=== PATIENT | male | born 1985 | race Caucasian/White ===

== ENCOUNTER 2017-06-21 07:37 | Day surgery (SDC) | payer OTHER ==
[~2017-06-21] VITALS: Ht 177.8 cm; Wt 78.2 kg
[~2017-06-21 07:37] MED LIST: SODIUM CHLORIDE 0.9% 1,000 ML IV ONE
[2017-06-21] MEDS ORDERED: SODIUM CHLORIDE 0.9% 1,000 ML IV ONE (07:46)
[2017-06-21] MEDS ORDERED: MONT10TA21 PO (08:02)
[2017-06-21] MEDS ORDERED: FentaNYL CITRATE-PF 100 MCG/2 ML VIAL ONE (08:03)
[2017-06-21] MEDS ORDERED: MIDAZOLAM HCL 2 MG/2 ML VIAL ONE (08:03)
[2017-06-21] MEDS ORDERED: FLUT16H NASAL (08:03)
[2017-06-21] MEDS ORDERED: OMEP20 PO (08:03)
[2017-06-21] MEDS ORDERED: FLUC200T PO (08:03)
[2017-06-21] MEDS ORDERED: MethylPREDNISolone SOD SUCC 125 MG/2 ML VIAL IVP ONE (09:00)
[2017-06-21] MEDS ORDERED: MethylPREDNISolone SOD SUCC 125 MG/2 ML VIAL ONE (09:16)
[2017-06-21] MEDS ORDERED: OXYGEN THERAPY IH SCH (20:00)
== END 2017-06-21 10:20 | disposition home or self-care (01) ==
LOC: SURGERY 07:37
PROVIDERS: ATTEND Internal Medicine Critical Care Medicine
DX: J38.4 Edema of larynx (principal); B37.0 Candidal stomatitis; J84.111 Idiopathic interstitial pneumonia, not otherwise specified; Z98.890 Other specified postprocedural states; Z79.899 Other long term (current) drug therapy
CPT/HCPCS: 31623; 31624; 71045; 87015; 87070; 87205; 87220; 88108; 88312; J2250; J2930; J3010; J7030